=== PATIENT | male | born 1990 | race Caucasian/White ===

== ENCOUNTER 2017-11-24 04:10 | Emergency (ER) | payer OTHER ==
[2017-11-24 04:11] VITALS: BMI 25.8
[2017-11-24 04:23] VITALS: RESP 18; TEMP 98; O2SAT 99
--- NOTE | 2017-11-24 04:33 | ED PDOC ---
Arrival/HPI - General Chief Complaint: Back Pain Time Seen by Provider: 11/24/17 04:29 - History of Present Illness Narrative History of Present Illness (Text): 26 y/o M c no PMHx p/w fall onto L sided neck earlier tonight. Denies headstrike , LOC, blurry vision, confusion. Pain is sharp, worse with movement, constant, nonradiating. Past Medical History - Tetanus Immunization Tetanus Immunization: Unknown - Cardiac Other/Comment: Excessive exercising causes heart to enlarge. - Pulmonary Hx Respiratory Disorders: No - Neurological Hx Neurological Disorder: No - HEENT Hx HEENT Disorder: No - Renal Hx Renal Disorder: No - Endocrine/Metabolic Hx Endocrine Disorders: No - Hematological/Oncological Hx Blood Disorders: No - Integumentary Hx Dermatological Disorder: No - Musculoskeletal/Rheumatological Hx Musculoskeletal Disorders: No - Gastrointestinal Hx Gastrointestinal Disorders: No - Genitourinary/Gynecological Hx Genitourinary Disorders: No - Psychiatric Hx Psychophysiologic Disorder: No Hx Depression: No Hx Emotional Abuse: No Hx Physical Abuse: No Hx Substance Use: No - Suicidal Assessment Feels Threatened In Home Enviroment: No Family/Social History Family/Social History: No Known Family HX Smoking Status: Light Smoker < 10 Cigarettes Daily Hx Alcohol Use: No Hx Substance Use: No Allergies/Home Meds Allergies/Adverse Reactions: Allergies No Known Allergies Allergy (Verified 05/02/16 09:23) Review of Systems - Physician Review All systems were reviewed & negative as marked: Yes - Review of Systems Constitutional: absent: Fevers Cardiovascular: absent: Chest Pain Physical Exam - Physical Exam Narrative Physical Exam (Text): Gen: NAD Head: NC/AT Eyes: PERRL ENT: MMM Neck: L sided paraspinal tenderness cerivcally. No hematoma or deformity. Chest: no tenderness CV: Regular rate Lungs: CTA b/l Back: No midline tenderness Abd: Soft, NT Extyremities: No swelling or tenderness Neuro: alert, no focal deficit. Vital Signs Temp Pulse Resp BP Pulse Ox 11/24/17 06:41 64 18 129/77 99 11/24/17 04:21 98.0 F 71 18 129/88 99 Medical Decision Making ED Course and Treatment: Cervical spine CT. Toradol IM. Valium PO. 11/24/17 06:44 FINDINGS: Artifacts: Overlying clothing artifact. Vertebrae: Left sided cervical scoliosis. No acute fracture. Discs/spinal canal/neural foramina: No acute findings. No spinal canal stenosis. Soft tissues: Unremarkable. Lung apices: Unremarkable. Other findings: Prominent cisterna magna. IMPRESSION: There is no acute fracture of cervical spine Patient in no acute distress. Soft collar placed. Instructed to return to ED immediately for increasing swelling, throbbing mass, vision change, or any other problem. - RAD Interpretation Radiology Orders: 11/24/17 04:33 CERVICAL SPINE W/O CONTRAST [CT] Stat - Medication Orders Current Medication Orders: Discontinued Medications Diazepam (Valium) 5 mg PO ONCE ONE PRN Reason: Protocol Stop: 11/24/17 05:11 Last Admin: 11/24/17 05:53 Dose: 5 mg Ketorolac Tromethamine (Toradol) 60 mg IM STAT STA Stop: 11/24/17 04:34 Last Admin: 11/24/17 04:48 Dose: 60 mg MAR Pain Assessment Document 11/24/17 04:48 YP (Rec: 11/24/17 04:49 YP [id number]) Pain Reassessment Is this a pain reassessment? No Sleep Is patient sleeping during reassessment? No Presence of Pain Presence of Pain Yes IM Administration Charges Document 11/24/17 04:48 YP (Rec: 11/24/17 04:49 YP [id number]) Injection Site MAR Injection Site Right Gluteus Ronald Charges for Administration # of IM Administrations 1 Disposition/Present on Arrival - Present on Arrival Any Indicators Present on Arrival: No History of DVT/PE: No History of Uncontrolled Diabetes: No Urinary Catheter: No History of Decub. Ulcer: No History Surgical Site Infection Following: None - Disposition Have Diagnosis and Disposition been Completed?: Yes Diagnosis: Neck pain Disposition: HOME/ ROUTINE Disposition Time: 06:45 Patient Plan: Discharge Condition: STABLE Discharge Instructions (ExitCare): Cervical Sprain (ED) Prescriptions: Cyclobenzaprine [Cyclobenzaprine HCl] 1 tab PO Q8H #12 tab Famotidine [Pepcid] 1 tab PO BID #14 tab Ibuprofen [Motrin] 600 mg PO Q6 #25 tab Referrals: [facility] [Outside] - Follow up with primary Forms: [employer] (Ukrainian), WORK NOTE
--- NOTE | 2017-11-24 06:41 | CT ---
EXAM: CT Cervical Spine Without Intravenous Contrast CLINICAL HISTORY: 26 years old, male; Injury or trauma; Fall; Initial encounter; Sprain or strain, cervical ligaments; Additional info: Neck pain S/P fall TECHNIQUE: Axial computed tomography images of the cervical spine without intravenous contrast. All CT scans at this facility use one or more dose reduction techniques, viz.: automated exposure control; ma/kV adjustment per patient size (including targeted exams where dose is matched to indication; i.e. head); or iterative reconstruction technique. 682 images are submitted. Coronal and sagittal reformatted images were created and reviewed. COMPARISON: No relevant prior studies available. FINDINGS: Artifacts: Overlying clothing artifact. Vertebrae: Left sided cervical scoliosis. No acute fracture. Discs/spinal canal/neural foramina: No acute findings. No spinal canal stenosis. Soft tissues: Unremarkable. Lung apices: Unremarkable. Other findings: Prominent cisterna magna. IMPRESSION: There is no acute fracture of cervical spine.
[2017-11-24 06:42] VITALS: BP 129/77; PULSE 64
== END 2017-11-24 06:57 | disposition home or self-care (01) ==
LOC: ED 04:10
DX: M54.2 Cervicalgia (principal)
CPT/HCPCS: 72125; 96372; 99283; J1885

== ENCOUNTER 2018-06-26 11:34 | Emergency (ER) | payer MEDICAID, OTHER ==
[2018-06-26 11:34] VITALS: BMI 25.8
[2018-06-26 11:43] VITALS: RESP 18; TEMP 98.6; O2SAT 98
--- NOTE | 2018-06-26 12:20 | ED PDOC ---
Arrival/HPI - General Chief Complaint: Lower Extremity Problem/Injury Time Seen by Provider: 06/26/18 11:35 Historian: Patient - History of Present Illness Narrative History of Present Illness (Text): 06/26/18 12:16 This 27 yo male who denies pmh presents to this ED c/o left posterior ankle pain x 1 day. Patient denies trauma, fall, or heavy lifting. Denies abx use, trauma, exercise, heavy lifting, skin rash, leg swelling, calf pain, weakness, paresthesias, or abnormal gait. Time/Duration: Other (see hpi) Context: Home Past Medical History - Provider Review Nursing Documentation Reviewed: Yes - Infectious Disease Hx of Infectious Diseases: None - Tetanus Immunization Tetanus Immunization: Unknown - Cardiac Other/Comment: Excessive exercising causes heart to enlarge. - Pulmonary Hx Respiratory Disorders: No - Neurological Hx Neurological Disorder: No - HEENT Hx HEENT Disorder: No - Renal Hx Renal Disorder: No - Endocrine/Metabolic Hx Endocrine Disorders: No - Hematological/Oncological Hx Blood Disorders: No - Integumentary Hx Dermatological Disorder: No - Musculoskeletal/Rheumatological Hx Musculoskeletal Disorders: No - Gastrointestinal Hx Gastrointestinal Disorders: No - Genitourinary/Gynecological Hx Genitourinary Disorders: No - Psychiatric Hx Psychophysiologic Disorder: No Hx Depression: No Hx Emotional Abuse: No Hx Physical Abuse: No Hx Substance Use: No - Suicidal Assessment Feels Threatened In Home Enviroment: No Family/Social History - Physician Review Nursing Documentation Reviewed: Yes Family/Social History: Other (noncontributory) Smoking Status: Light Smoker < 10 Cigarettes Daily Hx Alcohol Use: No Hx Substance Use: No Allergies/Home Meds Allergies/Adverse Reactions: Allergies No Known Allergies Allergy (Verified 05/02/16 09:23) Review of Systems - Review of Systems Constitutional: Normal. absent: Fatigue, Weight Change, Fevers Eyes: Normal ENT: Normal Respiratory: Normal Cardiovascular: Normal Gastrointestinal: Normal Genitourinary Male: Normal Musculoskeletal: Other (left ankle pain) Skin: Normal Neurological: Normal Endocrine: Normal Hemo/Lymphatic: Normal Psychiatric: Normal Physical Exam Vital Signs Temp Pulse Resp BP Pulse Ox 06/26/18 11:39 98.6 F 73 18 129/80 98 Temperature: Afebrile Blood Pressure: Normal Pulse: Regular Respiratory Rate: Normal Appearance: Positive for: Well-Appearing, Non-Toxic, Comfortable Pain Distress: None Mental Status: Positive for: Alert and Oriented X 3 - Systems Exam Head: Present: Atraumatic, Normocephalic Pupils: Present: PERRL Extroacular Muscles: Present: EOMI Conjunctiva: Present: Normal Mouth: Present: Moist Mucous Membranes Neck: Present: Normal Range of Motion Upper Extremity: Present: Normal Inspection, Normal ROM, NORMAL PULSES Lower Extremity: Present: Normal Inspection, NORMAL PULSES, Normal ROM, Tenderness (mild posterior ankle tenderness), Neurovascularly Intact, Capillary Refill < 2 s, Other (Strauss test was negative. No calf tenderness. No postyeriro fibula tenderness). No: Edema, CALF TENDERNESS, Cyanosis, Trudy's Sign, Swelling, Erythema, Temperature Abnormalties Neurological: Present: GCS=15, CN II-XII Intact, Speech Normal, Motor Func Grossly Intact, Normal Sensory Function, Normal Cerebellar Funct, Gait Normal, Memory Normal Skin: Present: Warm, Dry, Normal Color. No: Rashes Psychiatric: Present: Alert, Oriented x 3, Normal Insight, Normal Concentration Medical Decision Making ED Course and Treatment: 06/26/18 13:46 Re-evaluation. Patient feels better. Discussed results and plan with patient who expresses understanding. All questions answered and there is agreement with the plan to discharge home with instructions. Patient stable for discharge. Return if symptoms persist or worsen. Patient was recommended RICE. To call drapery cutter clinic if pain persist or worsen. Crutches, and to remove flora bandage at bedtime. Re-evaluation Time: 13:46 Reassessment Condition: Re-examined, Improved - RAD Interpretation Narrative RAD Interpretations (Text): 06/26/18 13:46 Ankle x-rays: No Fx Radiology Orders: 06/26/18 12:15 ANKLE LEFT 3 VIEWS ROUTINE [RAD] Stat - Medication Orders Current Medication Orders: Discontinued Medications Ketorolac Tromethamine (Toradol) 30 mg IM STAT STA Stop: 06/26/18 12:16 Last Admin: 06/26/18 12:22 Dose: 30 mg MAR Pain Assessment Document 06/26/18 12:22 GMD (Rec: 06/26/18 12:22 GMD [id number]) Pain Reassessment Is this a pain reassessment? No Presence of Pain Presence of Pain Yes Location Left, Right or Bilateral Left Pain Location Body Site Ankle IM Administration Charges Document 06/26/18 12:22 [facility] (Rec: 06/26/18 12:22 [facility] [id number]) Injection Site MAR Injection Site Left Deltoid Charges for Administration # of IM Administrations 1 Disposition/Present on Arrival - Present on Arrival Any Indicators Present on Arrival: No History of DVT/PE: No History of Uncontrolled Diabetes: No Urinary Catheter: No History of Decub. Ulcer: No History Surgical Site Infection Following: None - Disposition Have Diagnosis and Disposition been Completed?: Yes Diagnosis: Ankle pain, left, Tendonitis of ankle, left Disposition: HOME/ ROUTINE Disposition Time: 13:47 Patient Plan: Discharge Patient Problems: Current Active Problems Problem Status Onset Ankle pain, left Acute Tendonitis of ankle, left Acute Condition: GOOD Discharge Instructions (ExitCare): Tendonitis (DC) Additional Instructions: Call private doctor for follow up visit in 1-2 days. Keep ankle elevated, ice , rest, crutches. Remove flora bandage at bedtime. Call drapery cutter if ankle pain persist. return to emergency if symptoms worsen. Prescriptions: Famotidine [Pepcid] 40 mg PO DAILY #10 tablet Naproxen 500 mg PO BID PRN #14 tablet PRN Reason: Pain, Severe (8-10) Referrals: [facility] [Outside] - Follow up with primary [facility] [Outside] - Follow up with primary [facility] [Outside] - Follow up with primary Forms: [employer] (Kazakh), WORK NOTE
--- NOTE | 2018-06-26 13:13 | RAD ---
Date of service: 06/26/2018 PROCEDURE: Left Ankle Radiographs. HISTORY: pain COMPARISON: None FINDINGS: BONES: Normal. No fracture. JOINTS: Normal. No osteoarthritis. Ankle mortise maintained. Talar dome intact SOFT TISSUES: Normal. OTHER FINDINGS: None. IMPRESSION: Normal left ankle radiographs.
[2018-06-26 13:53] VITALS: BP 121/70; PULSE 68
== END 2018-06-26 13:56 | disposition home or self-care (01) ==
LOC: ED 11:34
DX: M25.572 Pain in left ankle and joints of left foot (principal); M77.8 Other enthesopathies, not elsewhere classified
CPT/HCPCS: 73610; 96372; 99284; J1885